=== PATIENT | male | born 1945 | race Caucasian/White ===

== ENCOUNTER 2016-10-30 04:13 | Inpatient (IN) | payer MEDICARE, OTHER ==
[2016-10-30] VITALS (8 sets, daily range): BP systolic 118–135; BP diastolic 58–71
[~2016-10-30] VITALS: Ht 180.3 cm; Wt 100.8 kg
[~2016-10-30 04:13] MED LIST: ALLOPURINOL100 MG PO; ASPIR-TRIN325 MG PO; ATORVASTATIN CA40 M1 PO; CARVEDILOL6.25 MG PO; HCTZ PO; HYDR12.5C PO; HYDR25T PO; INDOMETHACIN25 M1 PO; KEFLEX500 MG PO; MOTRIN800 MG PO; ROSUVASTATIN PO; Zestril,Prinivi40 MG PO
[2016-10-30 05:01] LABS: BASO % 0.5 % (0.0-1.0); EOS # 0.2 10*3/uL (0.0-0.4); HEMATOCRIT 46.8 % (42.0-52.0); LYMPH # 2.2 10*3/uL (1.3-4.4); LYMPH % 27.7 % (27.0-41.0); MEAN CELL VOLUME 91.2 fl (80.0-94.0); MEAN CORPUSCULAR HGB 31.2 pg (27.0-31.0); MEAN CORPUSCULAR HGB CONC 34.2 g/dl (33.0-37.0); MEAN PLATELET VOLUME 11.1 fl (9.6-12.3); MONO # 0.7 10*3/uL (0.1-1.0); MONO % 8.3 % (3.0-9.0); NEUT # 4.8 10*3/uL (2.3-7.9); NEUT % 61.1 % (47.0-73.0); PLATELET COUNT AUTOMATED 179 10*3/uL (130-400); RED BLOOD COUNT 5.13 10*6/uL (4.50-5.90); RED CELL DISTRI WIDTH 12.7 % (0-14.5); WHITE BLOOD COUNT 7.9 10*3/uL (4.8-10.8)
[2016-10-30 05:20] LABS: ALBUMIN 3.4 gm/dl (3.1-4.5); ALKALINE PHOSPHATASE 70 U/L (45-117); BILIRUBIN, TOTAL 0.5 mg/dl (0.2-1.0); BUN 16 mg/dl (7-24); CARBON DIOXIDE 27 mmol/L (21-32); CHLORIDE 103 mmol/L (98-107); EST GLOM FILT AFRICAN AMERICAN > 60 ml/min; GLUCOSE 123 mg/dL (65-99); MAGNESIUM 1.9 mg/dL (1.5-2.1); SGOT/AST 21 IU/L (3-35); SGPT/ALT 36 U/L (12-78); SODIUM 138 mmol/L (136-145)
[2016-10-30 05:21] LABS: C-REACTIVE PROTEIN < 0.29 MG/DL (0-0.3); TROPONIN I < 0.015 ng/ml (<0.045)
[2016-10-30 06:23] LABS: ABG BASE EXCESS 0.6 mmol/L (-2.0-2.0); ABG CO2 CONTENT 25.9 mmol/L (23-27); ABG HCO3 24.7 mmol/l (22-26); ARTERIAL BLOOD GAS PH 7.412 (7.35-7.45); ARTERIAL BLOOD GAS PO2 61.5 mmHg (80-90)
[2016-10-30] MEDS ORDERED: LOSARTAN POTASS50 M1 PO (06:44)
[2016-10-30] MEDS ORDERED: VITAMIN D31000 IU PO (06:46)
[2016-10-30 08:01] LABS: FREE T4 1.07 ng/dl (0.76-1.46); TROPONIN I 0.029 ng/ml (<0.045)
[2016-10-30 08:07] LABS: THYROID STIM HORMONE (HS) 1.52 uIU/ml (0.358-4.75)
[2016-10-30 08:11] LABS: HEMOGLOBIN A1c 5.8 % (4.8-5.6)
[2016-10-30 08:29] LABS: PROTHROMBIN TIME 10.5 SECONDS (9.0-12.4)
[2016-10-30 09:27] LABS: FOLIC ACID 15.74 ng/mL (>5.38); VITAMIN D, 25-HYDROXY 37.8 ng/mL (30-100)
[2016-10-30] MEDS ORDERED: NORVASC2.5 MG PO (10:41)
== END 2016-10-30 11:18 | disposition home or self-care (01) | DRG 915 ==
LOC: ED 04:13 → EDHOLD 05:52 → ICCU 05:52
PROVIDERS: Emergency Medicine Emergency Medical Services; Internal Medicine Hospice and Palliative Medicine
DX: T78.3XXA Angioneurotic edema, initial encounter (principal); J96.01 Acute respiratory failure with hypoxia; E78.5 Hyperlipidemia, unspecified; E87.6 Hypokalemia; R73.9 Hyperglycemia, unspecified; E66.9 Obesity, unspecified; M1A.09X0 Idiopathic chronic gout, multiple sites, without tophus (tophi); R00.1 Bradycardia, unspecified; E78.00 Pure hypercholesterolemia, unspecified; I10 Essential (primary) hypertension; Z95.2 Presence of prosthetic heart valve; Z87.442 Personal history of urinary calculi; Z89.012 Acquired absence of left thumb; Z87.891 Personal history of nicotine dependence; Z72.89 Other problems related to lifestyle; Z68.31 Body mass index [BMI] 31.0-31.9, adult; Z82.49 Family history of ischemic heart disease and other diseases of the circulatory system; Z83.6 Family history of other diseases of the respiratory system; Z88.6 Allergy status to analgesic agent; Z79.82 Long term (current) use of aspirin; Z79.899 Other long term (current) drug therapy

== ENCOUNTER 2017-02-07 11:45 | Emergency (ER) | payer MEDICARE, OTHER ==
[~2017-02-07] VITALS: Ht 180.3 cm; Wt 98.0 kg
[~2017-02-07 11:45] MED LIST changes: +LOSARTAN POTASS50 M1 PO; +NORVASC2.5 MG PO; +VITAMIN D31000 IU PO
== END 2017-02-07 14:30 | disposition home or self-care (01) ==
LOC: ED 11:45
DX: S60.222A Contusion of left hand, initial encounter (principal); M10.9 Gout, unspecified; I10 Essential (primary) hypertension; Z87.891 Personal history of nicotine dependence; Z98.890 Other specified postprocedural states; Z87.442 Personal history of urinary calculi; Z90.89 Acquired absence of other organs; Z79.82 Long term (current) use of aspirin; Z88.6 Allergy status to analgesic agent; Z79.899 Other long term (current) drug therapy; W45.8XXA Other foreign body or object entering through skin, initial encounter; Y93.89 Activity, other specified; Y92.099 Unspecified place in other non-institutional residence as the place of occurrence of the external cause; Y99.9 Unspecified external cause status

== ENCOUNTER → 2018-08-20 | Outpatient (CLI) | payer MEDICARE, OTHER | END | disposition home or self-care (01) | LOC: CARD 15:00 | DX: R06.02 Shortness of breath (principal); Z95.2 Presence of prosthetic heart valve ==

== ENCOUNTER → 2020-08-14 | Outpatient (CLI) | payer MEDICARE | END | disposition home or self-care (01) | LOC: CARD 11:30 | PROVIDERS: ATTEND Internal Medicine Cardiovascular Disease | DX: I51.7 Cardiomegaly (principal); T82.09XA Other mechanical complication of heart valve prosthesis, initial encounter; Z95.2 Presence of prosthetic heart valve ==

== ENCOUNTER → 2022-06-04 | Outpatient (CLI) | payer OTHER | END | disposition home or self-care (01) | LOC: CARD 01:56 | PROVIDERS: ATTEND Internal Medicine Cardiovascular Disease | DX: I35.0 Nonrheumatic aortic (valve) stenosis (principal); I51.7 Cardiomegaly; R06.09 Other forms of dyspnea; Z95.2 Presence of prosthetic heart valve ==